=== PATIENT | female | born 1945 | race Caucasian/White ===

== ENCOUNTER 2020-09-12 13:44 | Emergency (ER) | payer SELFPAY ==
[2020-09-12] MEDS ORDERED: ANUSOL HC SUPP1 SUPP PR (18:46)
[2020-10-22] MEDS ORDERED: ANUSOL HC SUPP1 SUPP PR (20:08)
== END 2020-09-12 18:59 | disposition home or self-care (01) ==
LOC: ER1 13:44
DX: K64.8 Other hemorrhoids (principal); E03.9 Hypothyroidism, unspecified; Z90.710 Acquired absence of both cervix and uterus; Z87.891 Personal history of nicotine dependence
CPT/HCPCS: 99283

== ENCOUNTER 2020-12-01 16:45 | Emergency (ER) | payer MEDICARE ==
[~2020-12-01 16:45] MED LIST: ANUSOL HC SUPP1 SUPP PR
[2020-12-01] MEDS ORDERED: COLACE 100MG C100 MG PO (18:33)
[2020-12-01] MEDS ORDERED: ANUSOL HC SUPP1 SUPP PR (18:33)
== END 2020-12-01 19:15 | disposition home or self-care (01) ==
LOC: ER1 16:45
DX: K62.3 Rectal prolapse (principal); K64.4 Residual hemorrhoidal skin tags; E03.9 Hypothyroidism, unspecified; J44.9 Chronic obstructive pulmonary disease, unspecified; Z88.5 Allergy status to narcotic agent; Z88.8 Allergy status to other drugs, medicaments and biological substances
CPT/HCPCS: 99283